=== PATIENT | male | born 1975 | race Caucasian/White ===

== ENCOUNTER 2018-04-27 10:47 | Emergency (ER) | payer OTHER ==
[~2018-04-27] VITALS: Ht 165.1 cm; Wt 83.9 kg
[~2018-04-27 10:47] MED LIST: BICARSIM FORTE125 MG PO; CIPRO500 MG PO; COZAAR25 MG; DEXILANT60 MG PO; DIOVAN40 MG PO; DOLOGESIC CAPLE1 TAB PO; KETO10TA2 PO; LEVSIN/SL0.125 MG SL; LOSARTAN POTASS50 MG PO; NEXIUM I.V20 MG/VIAL; PROTONIX40 MG
== END 2018-04-27 14:38 | disposition home or self-care (01) ==
LOC: ER 10:47
DX: B34.9 Viral infection, unspecified (principal)

== ENCOUNTER 2018-10-04 13:02 | Emergency (ER) | payer OTHER ==
[~2018-10-04] VITALS: Ht 165.1 cm; Wt 81.6 kg
[2018-10-04] MEDS ORDERED: PROTONIX40 MG (14:55)
[2018-10-04] MEDS ORDERED: PERCOCET 5-3251 EACH PO (19:15)
== END 2018-10-04 19:18 | disposition home or self-care (01) ==
LOC: ER 13:02
DX: S20.211A Contusion of right front wall of thorax, initial encounter (principal); V19.9XXA Pedal cyclist (driver) (passenger) injured in unspecified traffic accident, initial encounter; Y93.89 Activity, other specified; Y92.89 Other specified places as the place of occurrence of the external cause; Y99.8 Other external cause status